=== PATIENT | male | born 1945 | race Caucasian/White ===

== ENCOUNTER 2024-05-12 11:17 | Emergency (ER) | payer BC, SELFPAY ==
[2024-05-12 11:32] VITALS: BP 175/119
--- NOTE | 2024-05-12 12:17 | ED.GENMED ---
History of Present Illness
General
Chief Complaint: Fall
Source: patient and spouse
Exam Limitations: none
Time Seen by Provider: 05/12/24 11:59
Nursing documentation reviewed up to this point in time: agreed with
History of Present Illness
History of Present Illness:
78-year-old male past medical history of hyperlipidemia diabetes presenting to the emergency department 1 week after tripping off of a stair ongoing low back pain right-sided shoulder pains and did not hit his head no loss of consciousness. Not on
thinners. Has been able to ambulate with some difficulty
Review of Systems
Review of Systems
Allergies reviewed?: Yes
All Other Systems: ROS reviewed and negative except as documented in HPI and ROS
Phy Exam
Physical Exam
Physical Exam:
GENERAL: Alert , in no apparent distress
EYE: pupils equal and reactive
NECK: Supple, no significant adenopathy.
ENT: No posterior neck pain o/p clr, mmm.
CARDIAC: Regular rate and rhythm .
LUNGS: Clear breath sounds bilaterally, no acute respiratory distress, no wheezes/rales/rhonchi
ABDOMEN: Soft, without focal tenderness, no r/g, no cvat
NEUROLOGICAL: Alert and oriented, no focal neuro deficits
SKIN: Warm and dry, skin intact.
MUSCULOSKELETAL: Mildly reproducible discomfort to the right shoulder increased with movement as well as tenderness palpation to the right lumbar paraspinal muscles minimal pain to the midline at the lumbar region. There are overlying skin changes.
No tenderness throughout the lower extremities or left upper extremity., well perfused.
PSYCH: Normal and appropriate interaction.
Course
Orders/Labs/Results
Orders:
Orders
05/12/24 12:08
Acetaminophen [Tylenol] 1,000 mg PO NOW STA
Ketorolac [Toradol] 30 mg IM NOW STA
CR Shoulder, Trauma - Right Urgent
Comment:
Reason For Exam: pain after fall
Lumbar Spine, 2 or 3 View [CR Lumbar Spine 2 Or 3 Views] Urgent
Comment:
Reason For Exam: low back pain trauma
05/12/24 13:30
CT Abd/pelvis Angio W/wo Iv Urgent
Comment:
Reason For Exam: AAA on xray
05/12/24 13:45
CBC/With Diff [Complete Blood Count/With Diff] Urgent
CMP [Comprehensive Metabolic Panel] Urgent
Abnormal Lab Results
05/12/24
13:45
RBC 4.21 L 10^6/uL
(4.70-6.10)
Hgb 12.7 L g/dL
(13.0-18.0)
Hct 37.3 L %
(39.0-52.0)
Abs Immat Gran (auto) 0.1 H 10^3/uL
(0-0.05)
Absolute Monos (auto) 0.8 H 10^3/uL
(0.1-0.6)
Immature Gran % 0.8 H %
(0-0.5)
BUN 24 H mg/dl
(9-20)
Glucose 224 H mg/dl
(70-99)
05/12/24 13:45
05/12/24 13:45
Vital Signs
Initial and Last Documented VS:
Initial Vital Signs
Temp Pulse Resp BP Pulse Ox
98.1 F 82 18 175/119 99
05/12/24 11:32 05/12/24 11:32 05/12/24 11:32 05/12/24 11:32 05/12/24 11:32
Last Documented Vital Signs
Temp Pulse Resp BP Pulse Ox
98.1 F 62 16 175/82 99
05/12/24 11:32 05/12/24 14:12 05/12/24 14:12 05/12/24 14:12 05/12/24 14:12
MDM/Problems Addressed
MDM/Problems Addressed:
78-year-old male presenting to the emergency department today with concerns of a fall 1 week ago ongoing low back pain and shoulder pain. Plan for x-rays for further assessment. X-rays without signs of emergent injury but does show possible CT
angiogram before likely outpatient follow-up. Abdominal aortic aneurysm. Case was discussed with vascular surgery they recommended patient here able to ambulate in no distress. CT angiogram was performed here reviewed by vascular recommending
outpatient close follow-up. Otherwise stable for outpatient management. Return precautions given.
*Critical Care Note
Total Time (30-74mins, 75-104mins- exclusive of procedures): Not Applicable
ED Attending Note
-
Portions of this chart may have been created with voice recognition software.� Occasional wrong word or��sound alike� substitutions may have occurred due to the inherent limitations of voice recognition software.
Discharge Plan
Departure
Patient Disposition: Home (Routine Discharge)
Date of Disposition: 05/12/24
Time of Disposition: 15:20
Patient with high blood pressure during this ER visit?: No
Condition: Good
Covid-19: Not Applicable
Discharge Problem:
Abdominal aortic aneurysm, Back pain
Instructions: Abdominal aortic aneurysm, Preventing falls in adults
Referrals:
Virgil Banegas MD [Active] - Follow up in 10 days
Robert Denton MD [Active] - Follow up in 10 days
UNKNOWN - PT DOES,NOT KNOW [Family Provider] -
Activity Restrictions/Additional Instructions:
You came to the emergency department today with concerns of back pain. Here you had an x-ray without signs of emergent injury but did show an abdominal aortic aneurysm. He is up getting a CT scan that showed a small aneurysm in your lower abdomen.
Please follow closely with vascular surgery for this. For ongoing back pain please follow closely with the back doctor. Return to the emergency department for any worsening, new or concerning symptoms.
Interventions
Interventions:
*Risk Screen - Suicide Last Done: 05/12/24 11:32
*General Assessment Last Done: 05/12/24 11:32
*Neglect/Abuse Screening Last Done: 05/12/24 11:32
ED-Musculoskeletal Assessment Last Done: 05/12/24 12:00
ED- Neurological Assessment Last Done: 05/12/24 12:00
ED-Skin Assessment Last Done: 05/12/24 12:00
Discharge Date and Time
Print Language: MALAWIAN
[2024-05-12] MEDS: TYLENOL 1000 MG PO (12:28)
[2024-05-12] MEDS: TORADOL 30 MG IM (12:28)
[2024-05-12 13:44] VITALS: BMI 25.1
[2024-05-12 13:58] LABS: % Basophils 0.6 % (0-2); % Eosinophils 4.2 % (0-6); % Immature Granulocytes 0.8 % (0-0.5); % Lymphocytes 23.4 % (20.5-51.1); % Monocytes 8.3 % (1.7-9.3); % Neutrophils 62.7 % (42.2-75.2); Absolute Basophils 0.1 10^3/uL (0-0.2); Absolute Eosinophils 0.4 10^3/uL (0-0.7); Absolute Immature Granulocytes 0.1 10^3/uL (0-0.05); Absolute Lymphocytes 2.1 10^3/uL (1.2-3.4); Absolute Monocytes 0.8 10^3/uL (0.1-0.6); Absolute Neutrophils 5.6 10^3/uL (1.4-6.5); Hematocrit 37.3 % (39.0-52.0); Hemoglobin 12.7 g/dL (13.0-18.0); Mean Corpuscular Hgb 30.2 pg (27.0-31.0); Mean Corpuscular Volume 88.6 fL (80.0-94.0); Mean Platelet Volume 10.1 fL (7.4-10.4); Nucleated Red Blood Cells % 0 % (-); Platelet Count 202 10^3/uL (130-400); Red Blood Cell Count 4.21 10^6/uL (4.70-6.10); Red Cell Dist. Width 14.1 % (11.5-14.5)
[2024-05-12 14:09] LABS: ALT (SGPT) 23 U/L (0-50); AST (SGOT) 20 U/L (17-59); Albumin 4.7 g/dl (3.5-5.0); Alkaline Phosphatase 67 U/L (38-126); Blood Urea Nitrogen 24 mg/dl (9-20); Calcium 9.8 mg/dl (8.4-10.2); Carbon Dioxide 26 mmol/L (22-30); Chloride 102 mmol/L (98-107); Estimated Creatinine Clearance 69 ml/min; Glucose 224 mg/dl (70-99); Potassium 4.5 mmol/L (3.5-5.1); Sodium 135 mmol/L (135-145); Total Bilirubin 0.4 mg/dl (0.2-1.3); Total Protein 7.1 g/dl (6.3-8.2); eGFR > 60.00
[2024-05-12 14:12] VITALS: BP 175/82
[2024-05-12 15:34] VITALS: BP 180/108
== END 2024-05-12 15:37 | disposition home or self-care (01) ==
LOC: EMR 11:17
PROVIDERS: Physician Assistant; EMERGENCY PHYSICIAN Emergency Medicine
DX: I71.43 Infrarenal abdominal aortic aneurysm, without rupture (principal); M54.50 Low back pain, unspecified; M25.511 Pain in right shoulder; E78.5 Hyperlipidemia, unspecified; E11.9 Type 2 diabetes mellitus without complications
CPT/HCPCS: 99284; 96372; 72100; 73030; 74174; 80053; 85025; Q9967

== ENCOUNTER → 2024-11-08 09:53 | Outpatient (REF) | payer BC, SELFPAY | LOC: MRI 3T 09:53 | PROVIDERS: ATTENDING PHYSICIAN Anesthesiology Pain Medicine | DX: M54.16 Radiculopathy, lumbar region (principal) | CPT/HCPCS: 72148 ==